=== PATIENT | female | born 1985 | race Hispanic/Latino ===

== ENCOUNTER 2020-12-18 12:29 | Emergency (ER) | payer SELFPAY ==
[~2020-12-18] VITALS: Ht 152.4 cm; Wt 141.7 kg
[2020-12-18] MEDS ORDERED: ZITHROMAX250 MG PO (14:19)
== END 2020-12-18 14:26 | disposition home or self-care (01) ==
LOC: FSED 12:42
DX: R05 Cough (principal); J20.9 Acute bronchitis, unspecified; E66.9 Obesity, unspecified
CPT/HCPCS: 71045; 99283

== ENCOUNTER 2024-07-27 09:42 | Emergency (ER) | payer SELFPAY ==
[~2024-07-27] VITALS: Ht 152.4 cm; Wt 117.1 kg
[~2024-07-27 09:42] MED LIST: ZITHROMAX250 MG PO
[2024-07-27 09:48] VITALS: PULSE 105; RESP 20; TEMP 98.3
[2024-07-27] MEDS: ALBUTEROL SULF 0.083% NEB SOLN 3 ML NEB NEB STA (10:19)
[2024-07-27] MEDS ORDERED: MUCINEX600 MG PO (10:20)
[2024-07-27] MEDS ORDERED: VENTOLIN HFA18 GM INH (10:20)
[2024-07-27] MEDS ORDERED: AZITHROMYCIN250 MG PO (10:20)
[2024-07-27 10:39] VITALS: BP 146/84; PULSE 105; RESP 20; O2SAT 97
== END 2024-07-27 10:34 | disposition home or self-care (01) ==
LOC: FSED 09:46
DX: R05.9 Cough, unspecified (principal); J20.9 Acute bronchitis, unspecified; R09.89 Other specified symptoms and signs involving the circulatory and respiratory systems; E66.9 Obesity, unspecified; Z11.52 Encounter for screening for COVID-19
CPT/HCPCS: 0223U; 71046; 83518; 87400; 99284